=== PATIENT | male | born 1990 | race African-American/Black ===

== ENCOUNTER 2019-09-30 05:19 | Emergency (ER) | payer SELFPAY ==
[~2019-09-30] VITALS: Ht 162.6 cm; Wt 54.0 kg
[2019-09-30 05:24] VITALS: Ht 162.6 cm; Wt 54.0 kg
[2019-09-30 06:36] VITALS: BP 113/79
== END 2019-09-30 06:36 | disposition home or self-care (01) ==
LOC: ED 05:19
DX: S63.501A Unspecified sprain of right wrist, initial encounter (principal); X58.XXXA Exposure to other specified factors, initial encounter; Y93.61 Activity, american tackle football; Y92.89 Other specified places as the place of occurrence of the external cause; Y99.8 Other external cause status